=== PATIENT | female | born 1955 | race Two or more races ===

== ENCOUNTER 2024-07-22 13:36 | Outpatient (REF) | payer MEDICAID, SELFPAY ==
--- OUTSIDE RECORDS SUMMARY | 2024-07-22 13:43 | XMS_ITS | Encounter Summary ---
Author Organization [employer] Address [address] [facility] 7t [place] [address] Care Team Providers Care Precast Worker Name Role Phone Unavailable Primary Care Provider Unavailabl e Encounter Details Date Type Department Care Team ([facility] st Contact Info) Description 07/22/2024 Telephone [facility] [address] [place] [address] Zachariah Sharma MD [address] [place] [address] Social History Tobacco Use Types Packs/Day Years Used Date Smoking Tobacco: Never Assessed Comments Unknown Sex and Gender Information Value Date Recorded Sex Assigned at Female 07/22/2024 10:13 AM EDT Legal Sex Female 9:39 AM EST Gender Identity Female 07/22/2024 10:13 AM EDT Sexual Orientation Don't know 07/22/2024 10 :13 AM EDT documented as of this encounter Miscellaneous Notes * Telephone Encounter - [place] - 07/22/2024 11:16 AM EDT Pt has a new diagnosis for Diabetes, needs new patient appt within [address] Sharma. documented in this encounter Plan of Treatment Not on file documented as of this encounter Visit Diagnoses Not on filedocumented in this encounter
--- OUTSIDE RECORDS SUMMARY | 2024-07-22 13:43 | XMS_ITS | Encounter Summary ---
Author Organization [employer] Address [address] [facility] 7 [place] [address] Care Team Providers Care Tile Machine Operator Name Role Phone Unavailable Primary Care Provider Unavailabl e Reason for Visit * Reason Onset Date Comments new patient appointment 07/22/2024 Encounter Details Date Type Department Care Team ([facility] st Contact Info) Description 07/22/2024 Telephone [facility] [address] [place] [address] Zachariah Sharma MD [address] [place] [address] new patient appointment Social History Tobacco Use Types Packs/Day Years Used Date Smoking Tobacco: Never Assessed Comments Unknown Sex and Gender Information Value Date Recorded Sex Assigned at Female 07/22/2024 10:13 AM EDT Legal Sex Female 9:39 AM EST Gender Identity Female 07/22/2024 10:13 AM EDT Sexual Orientation Don't know 07/22/2024 10 :13 AM EDT documented as of this encounter Miscellaneous Notes * Telephone Encounter - Marilee Bray - 07/22/2024 11:14 AM EDT Patient added to [facility] New patient wait list as of 07/22/24. * Telephone Encounter - Miles Gregory - 07/22/2024 10:23 AM EDT Pt needs a n/p appointment was seen in walk in on 07/22/24. Pt is aware of wait list and has left adetailed message on n/p line per daughter statement. documented in this encounter Plan of Treatment Not on file documented as of this encounter Visit Diagnoses Not on filedocumented in this encounter
--- OUTSIDE RECORDS SUMMARY | 2024-07-22 13:43 | XMS_ITS | Encounter Summary ---
Author Organization [employer] Address [address] [facility] 7t [place] [address] Care Team Providers Care Statue Carver Name Role Phone Unavailable Primary Care Provider Unavailabl e Reason for Visit * Reason Comments Hyperglycemia Encounter Details Date Type Department Care Team ([facility] st Contact Info) Description 07/22/2024 10:20 AM EDT Office Visit [facility] [address] [place] [address] Zachariah Sharma MD [address] [place] [address] Elevated BP without diagnosis of hypertension (Primary Dx); New onset type 2 diabetes mellitus ([facility]) Social History Tobacco Use Types Packs/Day Years Used Date Smoking Tobacco: Never Assessed Comments Unknown Sex and Gender Information Value Date Recorded Sex Assigned at Female 07/22/2024 10:13 AM EDT Legal Sex Female 9:39 AM EST Gender Identity Female 07/22/2024 10:13 AM EDT Sexual Orientation Don't know 07/22/2024 10 :13 AM EDT documented as of this encounter Last Filed Vital Signs Vital Sign Reading Time Taken Comments Blood Pressure 155/82 07/22/2024 10:46 AM EDT Pulse 73 07/22/2024 10:46 AM EDT Temperature 36.7 ??C (98.1 ??F) 07/22/2024 10:46 AM E DT Respiratory Rate 18 07/22/2024 10:46 AM EDT Oxygen Saturation 100% 07/22/2024 10:46 AM EDT Inhaled Oxygen Concentration - - Weight 86.2 kg (190 lb) 07/22/2024 10:46 AM EDT Height - - Body Mass Index - - documented in this encounter Progress Notes * Zachariah Edith, MD - 07/22/2024 10:20 AM EDT Subjective History was provided by the patient. Here with her daughter (Ronna) Betzaida Wolfe is a 69 y.o. female NEW PATIENT who presents for evaluation of elevated BS.Originally from [facility], but moved here 3 months ago. Has not had much medical care recently. Overall healthy. Not on any routine medications other than multivitamins. History of neck surgery for a mass (not thyroid; non-cancerous) ~8 years ago. . Has 11 grandchildren and 1 great grandchild. Recalls last Pap was 4-5 years ago (was told normal). Last mammogram was also 4-5 years ago (wastold normal). Has been checking BS using a family member's glucometer. No symptoms other than polydipsia. Stable weight. Had a fasting BS of 140 yesterday. POC BS 110 & Hgb A1c 6.5 today. Objective Vitals: 07/22/24 1046 BP: (!) 155/82 BP Location: Right arm Patient Position: Sitting BP Cuff Size: Adult Pulse: 73 Resp: 18 Temp: 98.1 ??F (36.7 ??C) TempSrc: Temporal SpO2: 100% Weight: 190 lb (86.2 kg) Physical Exam Vitals reviewed. Constitutional: Appearance: Normal appearance. She is normal weight. HENT: Head: Normocephalic and atraumatic. Right Ear: Tympanic membrane, ear canal and external ear normal. Left Ear: Tympanic membrane, ear canal and external ear normal. Nose: Nose normal. Mouth/Throat: Mouth: Mucous membranes are moist. Pharynx: Oropharynx is clear. Eyes: Extraocular Movements: Extraocular movements intact. Conjunctiva/sclera: Conjunctivae normal. Pupils: Pupils are equal, round, and reactive to light. Cardiovascular: Rate and Rhythm: Normal rate and regular rhythm. Heart sounds: Normal heart sounds. Pulmonary: Effort: Pulmonary effort is normal. Breath sounds: Normal breath sounds. Musculoskeletal: General: Normal range of motion. Cervical back: Normal range of motion and neck supple. Lymphadenopathy: Cervical: No cervical adenopathy. Skin: General: Skin is warm and dry. Neurological: General: No focal deficit present. Mental Status: She is alert and oriented to person, place, and time. Psychiatric: Mood and Affect: Mood normal. Behavior: Behavior normal. Betzaida was seen today for hyperglycemia. Diagnoses and all orders for this visit: Elevated BP without diagnosis of hypertension (Primary) New onset type 2 diabetes mellitus (CMS/HCC) - POCT A1C - POCT glucose manually resulted - metFORMIN, OSM, (Fortamet) 500 MG 24 hr tablet; Take 1 tablet (500 mg) by mouth Once per day. Do not crush, chew, or split. - Alcohol Swabs (Alcohol Pads) 70 % pads; Use as directed on skin; check 2x/day (new-onset Type 2 DM) - Blood Glucose Monitoring Suppl (FreeStyle [place] Lite) w/Device kit; Use as directed on skin; check 2x/day (new-onset Type 2 DM) - FreeStyle lancets; 1 each by Other route 2 times daily. Use as directed on skin; check 2x/day (new-onset Type 2 DM) - glucose blood (FREESTYLE LITE) test strip; Use as directed on skin; check 2x/day (new-onset Type 2 DM) - Comprehensive Metabolic Panel; Future - CBC auto differential; Future - Lipid Panel, Standard; Future - Albumin, Random Urine W/Creatinine; Future - TSH W/Reflex to FT4; Future New patient presents to [facility] due to elevated BS New diagnosis of DM based on fasting BS and Hgb A1c criteria Sister with diabetes Will check CMP, CBC, FLP, TSH, and MA/Cr ratio Discussed treatment options Will start Metformin ER 500mg daily Potential adverse effects of the medication reviewed Glucometer and supplies prescribed Will schedule a new PCP appointment YAEL Recommend monitoring BP Indications for UC/ER use reviewed Advised to contact the clinic if persistent or worsening concerns Aware of [facility] availability documented in this encounter Plan of Treatment Scheduled Orders Name Type Priority Associated Diagnoses Orde r Schedule Comprehensive Metabolic Panel Lab Routine New onset type 2 diabetes mellitus (CMS/HCC) Expected: 07/22/2024 (Approximate), Expires: 07/22/2025 CBC auto differential Lab Routine New onset type 2 diabetes mellitus (CMS/HCC) Expected: 07/22/2024 (Approximate), Expires: 07/22/2025 Lipid Panel, Standard Lab Routine New onset type 2 diabetes mellitus ([facility]/HCC) Expected: 07/22/2024 (Approximate), Expires: 07/22/2025 Albumin, Random Urine W/Creatinine Lab Routine New onset type 2 diabetes mellitus ([facility]/HCC) Expected: 07/22/2024 (Approximate), Expires: 07/22/2025 TSH W/Reflex to FT4 Lab Routine New onset type 2 diabetes mellitus ([facility]/HCC) Expected: 07/22/2024 (Approximate), Expires: 07/22/2025 documented as of this encounter Procedures Procedure Name Priority Date/Time Associated Diagnosis Comments POCT GLYCATED HEMOGLOBIN, TOTAL Routine 07/22/2024 10:49 AM EDT New onset type 2 diabetes mellitus ([facility]/HCC) POCT GLUCOSE Routine 07/22/2024 10:49 AM EDT New onset type 2 diabetes mellitus ([facility]) documented in this encounter Results * POCT glucose manually resulted (07/22/2024 10:49 AM EDT) Glucose Blood, POC 110 60 - 200 mg/dL Blood Capillary blood specimen / Unknown 07/22/2024 10:49 AM EDT us Zachariah Sharma MD POINT OF CARE TEST ENTER/EDIT OR DERABLES Final Result * (ABNORMAL) POCT A1C (07/22/2024 10:49 AM EDT) Hemoglobin A1C 6.5(A) 4.0 - 6.0 % Blood 07/22/2024 10:4 9 AM EDT us Zachariah Sharma MD POINT OF CARE TEST ENTER/EDIT OR DERABLES Final Result documented in this encounter Visit Diagnoses Diagnosis Elevated BP without diagnosis of hypertension- Primary New onset type 2 diabetes mellitus ([facility]/HCC) documented in this encounter
--- OUTSIDE RECORDS SUMMARY | 2024-07-22 13:43 | XMS_ITS | Clinical Summary ---
Author Organization [employer] Address [address] [place] [address] 7t [place] [address] Care Team Providers Care Pharmacy Delivery Driver Name Role Phone Unavailable Primary Care Provider Unavailabl e Allergies No known active allergies Medications metFORMIN, OSM, (Fortamet) 500 MG 24 hr tabletIndicatio ns:Type 2 Diabetes Mellitus Take 1 tablet (500 mg) by mouth Once per day. Do not crush, chew, or split. 90 tablet 07/22/2024 10/21/19 25 Active Alcohol Swabs (Alcohol Pads) 70 % padsIndications :New onset type 2 diabetes mellitus (CMS/HCC) Use as directed on skin; check 2x/day (new-onset Type 2 DM) 100 each 11 07/22/2024 Active Blood Glucose Monitoring Suppl (FreeStyle [place] Lite) w/Device kitIndications: New onset type 2 diabetes mellitus (CMS/HCC) Use as directed on skin; check 2x/day (new-onset Type 2 DM) 1 kit 07/22/2024 Active FreeStyle lancetsIndicati ons:New onset type 2 diabetes mellitus (CMS/HCC) 1 each by Other route 2 times daily. Use as directed on skin; check 2x/day (new-onset Type 2 DM) 60 each 11 07/22/2024 07/23/19 26 Active glucose blood (FREESTYLE LITE) test stripIndication s:New onset type 2 diabetes mellitus (CMS/HCC) Use as directed on skin; check 2x/day (new-onset Type 2 DM) 60 each 07/22/2024 Active Encounters Date Type Department Care Team Description 07/22/2024 10:20 AM EDT Office Visit [facility] [address] [place] [address] Zachariah Sharma MD Elevated BP without diagnosis of hypertension (Primary Dx); New onset type 2 diabetes mellitus (CMS/HCC) 07/22/2024 Telephone [facility] [address] [place] [address] Zachariah Sharma MD 07/22/2024 Telephone [facility] [address] [place] [address] Zachariah Sharma MD new patient appointment 07/22/2024 Travel from Last 3 Months Social History Tobacco Use Types Packs/Day Years Used Date Smoking Tobacco: Never Assessed Comments Unknown Sex and Gender Information Value Date Recorded Sex Assigned at Female 07/22/2024 10:13 AM EDT Legal Sex Female 9:39 AM EST Gender Identity Female 07/22/2024 10:13 AM EDT Sexual Orientation Don't know 07/22/2024 10 :13 AM EDT Last Filed Vital Signs Vital Sign Reading [...] - - Body Mass Index - - Plan of Treatment Health Maintenance Due Date Last Done Comments CT Colonography 1956 Colonoscopy 1956 Colorectal Cancer Screening 1956 Depression Screening 1956 FIT DNA/Cologuard 1956 FIT 1956 FOBT 1956 Lipid Panel 1956 SDOH Screening 1956 Sigmoidoscopy 1956 Diabetes: Foot Exam 01/31/1966 Eye Exam 01/31/1966 Alcohol/Substance Use Screening 1968 Tobacco Screening 1968 Hepatitis C Screening 01/31/1974 DTaP/Tdap/Td Vaccines (1 - Tdap) 01/31/1975 Diabetes: Urine Protein Screening 01/31/1975 Pneumococcal Vaccine: 50+ Ye ars (1 of 2 - PCV) 01/31/1975 Mammogram 1996 Zoster Vaccines (1 of 2) 01/31/2006 COVID-19 Vaccine ( - 2023-2 5 season) 2023 Influenza Vaccine (#1) 2023 Diabetes: Hemoglobin A1C 01/22/2025 07/22/2024 RSV Patients and Pa tients Aged 60 years or older (1 - 1-dose 75+ series) 01/31/2031 HIB Vaccines Aged Out No longer eligi ble based on patient's age to complete this topic HPV Vaccines Aged Out No longer eligi ble based on patient's age to complete this topic Hepatitis A Vaccines Aged Out No long er eligible based on patient's age to complete this topic Hepatitis B Vaccines Aged Out No long er eligible based on patient's age to complete this topic IPV Vaccines Aged Out No longer eligi ble based on patient's age to complete this topic Meningococcal Vaccine Aged Out No wood pedro eligible based on patient's age to complete this topic RSV under 20 months Aged Out No longe r eligible based on patient's age to complete this topic Rotavirus Vaccines Aged Out No longer eligible based on patient's age to complete this topic Procedures Procedure Name Priority Date/Time Associated Diagnosis Comments POCT GLUCOSE Routine 07/22/2024 10:49 AM EDT New onset type 2 diabetes mellitus (CMS/HCC) POCT GLYCATED HEMOGLOBIN, TOTAL Routine 07/22/2024 10:49 AM EDT New onset type 2 diabetes mellitus (CMS/HCC) from Last 3 Months Results * (ABNORMAL) POCT A1C (07/22/2024 10:49 AM EDT) Hemoglobin A1C 6.5(A) 4.0 - 6.0 % Blood 07/22/2024 10:4 9 AM EDT Zachariah Sharma MD POINT OF CARE TEST ENTER/EDIT OR DERABLES Final Result * POCT glucose manually resulted (07/22/2024 10:49 AM EDT) Glucose Blood, POC 110 60 - 200 mg/dL Blood Capillary blood specimen / Unknown 07/22/2024 10:49 AM EDT Zachariah Sharma MD POINT OF CARE TEST ENTER/EDIT OR DERABLES Final Result from Last 3 Mon[address] [facility]
--- OUTSIDE RECORDS SUMMARY | 2024-07-22 13:43 | XMS_ITS | Encounter Summary ---
Author Organization [employer] Address [address] [place] [address] [address] [place] [address] Care Team Providers Care Compensation Vice President Name Role Phone Unavailable Primary Care Provider Unavailabl e Encounter Details Date Type Department Care Team (Latest Contact Info) Description 07/22/2024 Travel Social History Tobacco Use Types Packs/Day Years Used Date Smoking Tobacco: Never Assessed Comments Unknown Sex and Gender Information Value Date Recorded Sex Assigned at Female 07/22/2024 10:13 AM EDT Legal Sex Female 9:39 AM EST Gender Identity Female 07/22/2024 10:13 AM EDT Sexual Orientation Don't know 07/22/2024 10 :13 AM EDT documented as of this encounter Plan of Treatment Not on file documented as of this encounter Visit Diagnoses Not on filedocumented in this encounter
[2024-07-22 16:05] LABS: MANUAL DIFF FLAG NO
[2024-07-22 16:28] LABS: Basophils Percent Auto 0.4 % (0-2); Eosinophils Absolute Auto 0.2 X10*3/uL (0.0-0.4); Eosinophils Percent Auto 2.1 % (0-4); Hematocrit 39.6 % (37.0-47.0); Hemoglobin 12.8 g/dl (12.0-16.0); Imm Gran Abs Auto 0.03 X10*3/uL (0.00-0.03); Imm Gran Pct Auto 0.3 % (0.0-0.4); Lymphocytes Absolute Auto 2.5 X10*3/uL (1.2-4.9); Lymphocytes Percent Auto 27.4 % (20-40); Mean Corpuscular HGB Conc 32.3 g/dl (31.0-35.0); Mean Corpuscular Hemoglobin 28.6 pg (27.0-33.0); Mean Corpuscular Volume 88.6 fL (80.0-98.0); Mean Platelet Volume 11.4 fL (9.4-12.3); Monocytes Absolute Auto 0.5 X10*3/uL (0.1-1.2); Monocytes Percent Auto 5.4 % (2-11); Neutrophils Absolute Auto 5.7 x10*3/uL (2.0-8.3); Neutrophils Percent Auto 64.4 % (45-73); Platelet Count 307 X10*3/uL (160-400); Red Blood Count 4.47 X10*6/uL (4.20-5.50); Red Cell Distribution Width 14.6 % (11.0-16.0); White Blood Count 8.9 X10*3/uL (4.8-10.8)
[2024-07-22 17:34] LABS: Creatinine Urine 65.19 mg/dL; Microalbum/Creatinine Ratio Ur 21.4 ug/mg cr (<30)
[2024-07-22 17:58] LABS: Alanine Aminotransferase 14 U/L (0-31); Alkaline Phosphatase 107 U/L (39-117); Anion Gap 14 (12-20); Aspartate Amino Transferase 26 U/L (5-31); Bilirubin Total 0.4 mg/dL (0.0-1.0); Blood Urea Nitrogen 9 mg/dL (9-16); Calcium 9.8 mg/dL (8.4-10.2); Carbon Dioxide 28 mmol/L (22-29); Chloride 102 mmol/L (96-108); Cholesterol 175 mg/dL (<200); Estimated Glomerular Filt Rate > 60; Glucose Random 107 mg/dL (60-115); HDL Cholesterol 47 mg/dL (>40); LDL Cholesterol Calculated 103 mg/dL (<100); Potassium 3.6 mmol/L (3.3-5.1); Sodium 140 mmol/L (135-145); TSH reflex Free T4 2.62 uIU/mL (0.32-4.0); Total Protein 7.5 g/dL (6.5-8.0); Triglycerides 126 mg/dL (<150)
== END 2024-07-22 13:37 | disposition home or self-care (01) ==
LOC: HO.HHCL 13:36
PROVIDERS: Visit Provider Family Medicine
DX: E11.9 Type 2 diabetes mellitus without complications (principal)
CPT/HCPCS: 36415; 80053; 80061; 82043; 82570; 84443; 85025

== ENCOUNTER 2024-10-05 14:57 | Outpatient (REF) | payer MEDICAID, SELFPAY ==
--- OUTSIDE RECORDS SUMMARY | 2024-10-05 15:33 | XMS_ITS | Clinical Summary ---
Author Organization [employer] Address [address] [place] [address] [address] [place] [address] Care Team Providers Care Maintenance Mechanic Supervisor Name Role Phone Magali Valencia PASTE MAKER Primary Care Provider Allergies No known active allergies Medications Alcohol Swabs (Alcohol Pads) 70 % padsIndication s:New onset type 2 diabetes mellitus (CMS/HCC) Use as directed on skin; check 2x/day (new-onset Type 2 DM) 100 each 07/23/19 25 Active Blood Glucose Monitoring Suppl (FreeStyle Ettrick Lite) w/Device kitIndications :New onset type 2 diabetes mellitus (CMS/HCC) Use as directed on skin; check 2x/day (new-onset Type 2 DM) 1 kit 07/23/19 25 Active FreeStyle lancetsIndicat ions:New onset type 2 diabetes mellitus (CMS/HCC) 1 each by Other route 2 times daily. Use as directed on skin; check 2x/day (new-onset Type 2 DM) 60 each 07/23/19 25 05 026 Active glucose blood (FREESTYLE LITE) test stripIndicatio ns:New onset type 2 diabetes mellitus (CMS/HCC) Use as directed on skin; check 2x/day (new-onset Type 2 DM) 60 each 07/23/19 25 Active Omeprazole 20 MG tablet delayed-releas e Take 1 tablet (20 mg) by mouth Once per day. 90 tablet 10/06/19 25 Active metFORMIN, OSM, (Fortamet) 500 MG 24 hr tabletIndicati ons:Type 2 Diabetes Mellitus Take 1 tablet (500 mg) by mouth Once per day. Do not crush, chew, or split. 90 tablet 10/06/19 25 025 Active Blood Pressure kit 1 Units 2 times daily. 1 kit 10/06/19 Active atorvastatin (Lipitor) 10 MG tablet Take 1 tablet (10 mg) by mouth Once per day. 30 tablet 11 10/06/19 25 026 Active metFORMIN, OSM, (Fortamet) 500 MG 24 hr tabletIndicati ons:Type 2 Diabetes Mellitus Take 1 tablet (500 mg) by mouth Once per day. Do not crush, chew, or split. 90 tablet 07/23/19 025 Discontinued(Re order (will not trigger notification to Pharmacy)) Active Problems Problem Noted Date Diagnosed Date Gastroesophageal reflux disease without esophagi tis 10/05/2024 Encounters Date Type Department Care Team Description 10/05/2024 2:00 PM EDT Office Visit [address] [address] Magali Valencia FNP Encounter for immunization (Primary Dx); Dietary counseling; Exercise counseling; Gastroesophageal reflux disease without esophagitis; New onset type 2 diabetes mellitus (CMS/HCC) 10/05/2024 Travel 10/04/[address] [address] Magali Valencia FNP Chart Prep 09/27/2024 Patient Outreach [facility] [address] [place] [address] Magali Valencia FNP Pre-visit Planning (SDOH negative. Tobacco screening negative. ) 09/08/[address] [address] Magali Valencia FNP CH[facility] - New Patient Assistance 07/22/2024 10:20 AM EDT Office Visit [facility] [address] [place] [phone] Zachariah Sharma MD Elevated BP without diagnosis of hypertension (Primary Dx); New onset type 2 diabetes mellitus (CMS/HCC) 07/22/2024 Telephone [facility] [address] [place] [phone] Zachariah Sharma MD 07/22/2024 Telephone [facility] [address] [place] [address] Zachariah Sharma MD new patient appointment 07/22/2024 Travel from Last 3 Months Immunizations Immunization Administration Dates Next Due Pneumococcal Conjugate PCV 20 10/05/2024 Tdap 10/05/2024 Family History Medical History Relation Name Comments Diabetes Mother's Sister Relation Name Status Comments Mother's Sister Social History Tobacco Use Types Packs/Day Years Used Date Smoking Tobacco: Never Passive Smoke Exposure: Never Smokeless Tobacco: Never Tobacco Cessation:Counseling Given: Not Answered Alcohol Use Standard Drinks/Week Comments Never 0 (1 standard drink = 0.6 oz pur e alcohol) Depression Answer Date Recorded Patient Health Questionnaire-9 Score 0 10/05/2024 Patient Health Questionnaire-9 Score 0 10/05/2024 Last PHQ-9: Questionnaire Data Not on file 0 10/05/2024 Housing Stability Answer Date Recorded What is your housing situation today? I have jamie trimble 09/27/[address] you li ve. Do you have problems with any of the following? None of the above 09/27/2024 Food Insecurity Answer Date Recorded Within the past 12 months, y ou worried that your food would run out before you got money to buy more: Never True 09/27/2024 Within the past 12 months,th e food you bought just didn't last and you didn't have enough money to get more: Never True Transportation Answer Date Recorded In the past 12 months, has l ack of transportation kept you from medical appts, meetings, work or from getting things needed for daily living? No 09/27/2024 Utilities Answer Date Recorded In the past 12 months, has t he electric, gas, oil or water company threatened to shut off services in your home? No 09/27/2024 Depression Answer Date Recorded Patient Health Questionnaire-2 Score 0 10/05/2024 Internet Access Answer Date Recorded Internet Access Q1 Yes 09/27/2024 Internet Access Q2 Not on file 09/27/2024 Comments Unknown Sex and Gender Information Value Date Recorded Sex Assigned at Female 07/22/2024 10:13 AM EDT Legal Sex Female 9:39 AM EST Gender Identity Female 07/22/2024 10:13 AM EDT Sexual Orientation Don't know 07/22/2024 10 :13 AM EDT Last Filed Vital Signs Vital Sign Reading Time Taken Comments Blood Pressure 148/82 10/05/2024 2:07 PM EDT Pulse 86 10/05/2024 2:07 PM EDT Temperature 36.6 C (97.9 F) 10/05/2024 2:07 PM EDT Respiratory Rate 16 10/05/2024 2:07 PM EDT Oxygen Saturation 99% 10/05/2024 2:07 PM EDT Inhaled Oxygen Concentration - - Weight 84.6 kg (186 lb 8 oz) 10/05/2024 2:07 PM EDT Height 155.9 cm (5' 1.37 ) 10/05/2024 2:07 PM ED T Body Mass Index 34.82 10/05/2024 2:07 PM EDT Plan of Treatment Health Maintenance Due Date Last Done Comments CT Colonography 1956 Colonoscopy 1956 Colorectal Cancer Screening 1956 Depression Screening 1956 FIT DNA/Cologuard 1956 FIT 1956 FOBT 1956 Sigmoidoscopy 1956 Diabetes: Foot Exam 01/31/1966 Eye Exam 01/31/1966 Hepatitis C Screening 01/31/1974 Mammogram 1996 Zoster Vaccines (1 of 2) 01/31/2006 COVID-19 Vaccine (2023-2 5 season) 2023 Influenza Vaccine (#1) 2024 Diabetes: Hemoglobin A1C 01/22/2025 07/22/2024 Diabetes: Urine Protein Screening 07/22/2025 025 Lipid Panel 07/22/2025 07/22/2024 SDOH Screening 09/27/2025 09/27/2024 Alcohol/Substance Use Screening 10/05/2025 5 Tobacco Screening 10/05/2025 10/05/2024 RSV Patients and Pa tients Aged 60 years or older (1 - 1-dose 75+ series) 01/31/2031 DTaP/Tdap/Td Vaccines (2 - T d or Tdap) 10/05/2034 10/05/2024 Pneumococcal Vaccine: 50+ Years Completed 5 HIB Vaccines Aged Out No longer eligi [...] patient's age to complete this topic Meningococcal B Vaccine Aged Out No l onger eligible based on patient's age to complete [...] Procedure Name Priority Date/Time Associated Diagnosis Comments TSH W/REFLEX TO FT4 Routine 07/22/2024 1 :40 PM EDT New onset type 2 diabetes mellitus (CMS/HCC) ALBUMIN, RANDOM URINE W/CREATININE Routine 07/22/2024 1:40 PM EDT New onset type 2 diabetes mellitus (CMS/HCC) LIPID PANEL, STANDARD Routine 07/22/2024 1:40 PM EDT New onset type 2 diabetes mellitus (CMS/HCC) CBC WITH AUTO DIFFERENTIAL Routine 07/22/2024 1:40 PM EDT New onset type 2 diabetes mellitus (CMS/HCC) COMPREHENSIVE METABOLIC PANEL Routine 07/22/2024 1:40 PM EDT New onset type 2 diabetes mellitus (CMS/HCC) POCT GLUCOSE Routine 07/22/2024 10:49 AM EDT New onset type 2 diabetes mellitus (CMS/HCC) POCT GLYCATED HEMOGLOBIN, TOTAL Routine 07/22/2024 10:49 AM EDT New onset type 2 diabetes mellitus (CMS/HCC) from Last 3 Months Results * TSH W/Reflex to FT4 (07/22/2024 1:40 PM EDT) TSH reflex Free T4 2.62 0.32 - 4.0 uIU/mL [facility] Blood Venous blood specimen / Unknown 07/22/2024 1:40 PM EDT 07/22/2024 4:00 PM EDT Zachariah Sharma MD LAB BLOOD ORDERABLES Final Resul t Performing Organization Address [facility] de Phone Number [facility] [address] [place] [phone] * Albumin, Random Urine W/Creatinine (07/22/2024 1:40 PM EDT) Pathologist [facility] Creatinine, Urine 65.19 mg/dL [facility] Microalbumin Urine 14.0 mg/L [facility] Microalbum Creatinine Ratio Ur 21.4 <30 ug/mg cr [facility] Comment:Albumin/Creatinine R atio Reference Ranges: Normal: < 30 ug/mg creatinine Microalbuminuria: 30 - 300 ug/mg creatinineClinical Albuminuria: > 300 ug/mg creatinine Urine 07/22/2024 1:40 PM EDT 07/22/2024 4:01 PM EDT Zachariah Sharma MD LAB URINE ORDERABLES Final Resul t Performing Organization Address [facility] Co de Phone Number [facility] [address] [place] [phone] * CBC auto differential (07/22/2024 1:40 PM EDT) White Blood Count 8.9 4.8 - 10.8 X10*3/uL [facility] Red Blood Count 4.47 4.20 - 5.50 X10*6/uL [facility] Hemoglobin 12.8 12.0 - 16.0 g/dl [facility] Hematocrit 39.6 37.0 - 47.0 % [facility] Mean Corpuscular Volume 88.6 80.0 - 98.0 fL [facility] Mean Corpuscular Hemoglobin 28.6 27.0 - 33.0 pg [facility] Mean Corpuscular HGB Conc 32.3 31.0 - 35.0 g/dl [facility] Red Cell Distribution Width 14.6 11.0 - 16.0 % [facility] Platelet Count 307 160 - 400 X10*3/uL [facility] Mean Platelet Volume 11.4 9.4 - 12.3 fL [facility] Neutrophils Percent Auto 64.4 45 - 73 % [facility] Imm Gran Pct Auto 0.3 0.0 - 0.4 % [facility] Lymphocytes Percent Auto 27.4 20 - 40 % [facility] Monocytes Percent Auto 5.4 2 - 11 % [facility] Eosinophils Percent Auto 2.1 0 - 4 % [facility] Basophils Percent Auto 0.4 0 - 2 % [facility] NRBC Pct Auto 0.0 0.0 - 0.2 /100WBC [facility] Neutrophils Absolute Auto 5.7 2.0 - 8.3 x10*3/uL [facility] Imm Gran Abs Auto 0.03 0.00 - 0.03 X10*3/uL [facility] Lymphocytes Absolute Auto 2.5 1.2 - 4.9 X10*3/uL [facility] Monocytes Absolute Auto 0.5 0.1 - 1.2 X10*3/uL [facility] Eosinophils Absolute Auto 0.2 0.0 - 0.4 X10*3/uL [facility] Basophils Absolute Auto 0.0 0.0 - 0.2 X10*3/uL [facility] NRBC Abs Auto 0.000 0.0 - 0.012 X10*3/uL [facility] Blood Venous blood specimen / Unknown 07/22/2024 1:40 PM EDT 07/22/2024 4:00 PM EDT us Zachariah Sharma MD LAB BLOOD ORDERABLES Final Resul t [facility] [address] [place] [phone] * (ABNORMAL) Lipid Panel, Standard (07/22/2024 1:40 PM EDT) Triglycerides 126 <150 mg/dL [facility] Comment:Desirable Triglyceri de: less than 150 mg/dLBorderline High Triglyceride 150-199 mg/dLHigh Triglyceride: 200-499 mg/dLVery High Triglyceride: greater than or equal to 5OO mg/dL Cholesterol 175 <200 mg/dL [facility] Comment:Desirable Cholestero l: less than 200 mg/dLBorderline High Cholesterol: 200-239 mg/dLHigh Cholesterol: greater than 239 mg/dL LDL Cholesterol Calculated 103(H) <100 mg/dL [facility] Comment:Desirable LDL: less than 100 mg/dLNear Optimal/Above Optimal LDL: 110- 129 mg/dLBorderline High LDL: 130-159 mg/dLHigh LDL: 160-189 mg/dLVery High LDL: greater than or equal to 190 mg/dL HDL Cholesterol 47 >40 mg/dL [facility] Comment:Desirable HDL: great er than 40 mg/dL Note: This HDL assay may give artificially low results in patients with liver disease. Blood Venous blood specimen / Unknown 07/22/2024 1:40 PM EDT 07/22/2024 4:00 PM EDT us Zachariah Sharma MD LAB BLOOD ORDERABLES Final Resul t [facility] [address] [place] [phone] * Comprehensive Metabolic Panel (07/22/2024 1:40 PM EDT) Sodium 140 135 - 145 mmol/L [facility] Potassium 3.6 3.3 - 5.1 mmol/L [facility] Chloride 102 96 - 108 mmol/L [facility] Carbon Dioxide 28 22 - 29 mmol/L [facility] Anion Gap 14 12 - 20 [facility] Urea Nitrogen (BUN) 9 9 - 16 mg/dL [facility] Creatinine, Serum 0.67 0.5 - 1.4 mg/dL [facility] Estimated Glomerular Filt Rate >60 [facility] Comment:Chronic Kidney Disea se: Estimated GFR < 60 mL/min/1.01m6Tbabtt Kidney Disease: Estimated GFR < 15 mL/min/1.73m2 Glucose 107 60 - 115 mg/dL [facility] Calcium 9.8 8.4 - 10.2 mg/dL [facility] Bilirubin, Total 0.4 0.0 - 1.0 mg/dL [facility] Aspartate Amino Transferase 26 5 - 31 U/L [facility] Alanine Aminotransferase 14 0 - 31 U/L [facility] Total Protein 7.5 6.5 - 8.0 g/dL [facility] Albumin Level 4.0 3.5 - 5.0 g/dL [facility] Alkaline Phosphatase 107 39 - 117 U/L [facility] Blood Venous blood specimen / Unknown 07/22/2024 1:40 PM EDT 07/22/2024 4:00 PM EDT us Zachariah Sharma MD LAB BLOOD ORDERABLES Final Resul t [facility] [address] [place] [phone] * (ABNORMAL) POCT A1C (07/22/2024 10:49 AM [...] Final Result from Last 3 Months Insurance [facility] [employer] Care Teams Maintenance Mechanic Supervisor Relationship Specialty Start Date End Date Magali Valencia FNP [address] [place] [phone] PCP - General Family Medicine 10/05/24
[2024-10-05 22:23] LABS: CT PCR Urine NOT DETECTED (Not Detect.); NG PCR Urine NOT DETECTED (Not Detect.)
[2024-10-06 08:08] LABS: HBS Num1 25.59 mIU/mL (0-7.99); HBsAGNum1 0.34 S/CO (0.00-0.99); HIV Num 1 0.06 S/CO (0.00-0.99); Hepatitis B Surface Antigen Negative (Negative); ~HepC Num1 0.22 S/CO (0.00-0.79); ~Hepatitis B Surface Antibody REACTIVE (Nonreactive); ~Hepatitis C Antibody Nonreactive (Nonreactive)
== END 2024-10-05 14:58 | disposition home or self-care (01) ==
LOC: HO.HHCL 14:57
PROVIDERS: PCP Nurse Practitioner Family; Visit Provider Nurse Practitioner Family
DX: Z11.4 Encounter for screening for human immunodeficiency virus [HIV] (principal); Z11.59 Encounter for screening for other viral diseases; Z23 Encounter for immunization
CPT/HCPCS: 36415; 86706; 86803; 87340; 87389; 87491; 87591

== ENCOUNTER 2024-11-11 14:11 | Outpatient (REF) | payer MEDICAID, OTHER, SELFPAY ==
--- NOTE | ~2024-11-11 | MM_ITS ---
EXAMINATION: MM SCREENING DIGITAL BREAST TOMOSYNTHESIS, BILATERAL CLINICAL INFORMATION: Screening. Asymptomatic. COMPARISON: Mammography: Baseline. TECHNIQUE: Digital breast mammography with tomosynthesis is performed in both the craniocaudal and mediolateral oblique views along with computer-aided detection (CAD). FINDINGS: There are scattered areas of fibroglandular density (ACR BI-RADS breast composition Category b). Left: Circumscribed oval mass lower central breast anterior depth. No suspicious calcifications or other abnormal findings. Right: There are no significant masses, abnormal calcifications, or other abnormalities. MM/MM tomosynthesis screening BI IMPRESSION: Additional imaging is recommended ASSESSMENT: BI-RADS BI-RADS 0 - Incomplete: Needs additional Imaging. RECOMMENDATION: 1. Additional views of the left breast starting with ultrasound. 2. Radiology department staff will contact the patient for additional imaging. Additional Imaging required This examination should not preclude the clinical evaluation of a suspicious palpable abnormality. This patient's information was entered into a reminder system with a target due date for their next mammogram. Electronically signed by: Lianne Flores DO 11/15/2024 10:46 AM EDT
--- OUTSIDE RECORDS SUMMARY | 2024-11-11 14:14 | XMS_ITS | Clinical Summary ---
Author Organization [employer] Address [address] [place] [address] [address] [place] [address] Care Team Providers Care Cotton Bag Sewer Name Role Phone Magali Valencia SUPERVISOR CARTOGRAPHY Primary Care Provider [phone] Allergies No known active allergies Medications Alcohol Swabs (Alcohol Pads) 70 % padsIndications :New onset type 2 diabetes mellitus (CMS/HCC) Use as directed on skin; check 2x/day (new-onset Type 2 DM) 100 each 07/22/2024 Active Blood Glucose Monitoring Suppl (FreeStyle [place] Lite) w/Device kitIndications: New onset type 2 diabetes mellitus (CMS/HCC) Use as directed on skin; check 2x/day (new-onset Type 2 DM) 1 kit 07/22/2024 Active FreeStyle lancetsIndicati ons:New onset type 2 diabetes mellitus (CMS/HCC) 1 each by Other route 2 times daily. Use as directed on skin; check 2x/day (new-onset Type 2 DM) 60 each 07/22/2024 07/23/19 26 Active glucose blood (FREESTYLE LITE) test stripIndication s:New onset type 2 diabetes mellitus (CMS/HCC) Use as directed on skin; check 2x/day (new-onset Type 2 DM) 60 each 07/22/2024 Active Omeprazole 20 MG tablet delayed-release Take 1 tablet (20 mg) by mouth Once per day. 90 tablet 10/05/2024 Active metFORMIN, OSM, (Fortamet) 500 MG 24 hr tabletIndicatio ns:Type 2 Diabetes Mellitus Take 1 tablet (500 mg) by mouth Once per day. Do not crush, chew, or split. 90 tablet 10/05/2024 01/04/20 25 Active Blood Pressure kit 1 Units 2 times daily. 1 kit 10/05/2024 Active atorvastatin (Lipitor) 10 MG tablet Take 1 tablet (10 mg) by mouth Once per day. 30 tablet 11 10/05/2024 10/06/19 26 Active Active Problems Problem Noted Date Diagnosed Date Gastroesophageal reflux disease without esophagi tis 10/05/2024 Encounters Date Type Department Care Team Description 10/05/2024 2:00 PM EDT Office Visit [address] [address] Magali Valencia FNP Encounter for adult wellness visit (Primary Dx); Encounter for immunization; Dietary counseling; Exercise counseling; Gastroesophageal reflux disease without esophagitis; New onset type 2 diabetes mellitus ([facility]/HCC); Hyperlipidemia, unspecified hyperlipidemia type; Elevated BP without diagnosis of hypertension 10/05/2024 Orders Only [address] [address] Magali Valencia FNP 10/05/2024 Travel 10/04/[address] [address] Magali Valencia FNP Chart Prep 09/27/2024 Patient Outreach [facility] [address] [place], [place] [id number] Magali Valencia FNP Pre-visit Planning (SDOH negative. Tobacco screening negative. ) 09/08/[address] [address] Magali Valencia FNP CHW - New Patient Assistance from Last 3 Months Immunizations Immunization Administration [...] 1956 Colonoscopy 1956 Colorectal Cancer Screening 1956 FIT DNA/Cologuard 1956 FIT 1956 FOBT 1956 Sigmoidoscopy 1956 Diabetes: Foot Exam 01/31/1966 Eye Exam 01/31/1966 Mammogram 1996 Zoster Vaccines (1 of 2) 01/31/2006 COVID-19 Vaccine (1 - 2023-2 5 season) 2023 Influenza Vaccine (#1) 2024 Diabetes: Hemoglobin A1C 01/22/2025 07/22/2024 Diabetes: Urine Protein Screening 07/22/2025 07/22/2024 Lipid Panel 07/22/2025 07/22/2024 SDOH Screening 09/27/2025 09/27/2024 Alcohol/Substance Use Screening 10/05/2025 10/05/2024 Depression Screening 10/05/2025 10/05/2024, 10/05/2024 Tobacco Screening 10/05/2025 10/05/2024 RSV Patients and Patients Aged 60 years or older (1 - 1-dose 75+ series) 01/31/2031 DTaP/Tdap/Td Vaccines (2 - T d or Tdap) 10/05/2034 10/05/2024 Hepatitis C Screening Completed 10/05/2024 Pneumococcal Vaccine: 50+ Years Completed 10/05/2024 HIB Vaccines Aged Out No longer eligi [...] Procedure Name Priority Date/Time Associated Diagnosis Comments HEPATITIS B SURFACE ANTIBODY, QUALITATIVE Routine 10/05/2024 3:02 PM EDT Encounter for immunization HEPATITIS B SURFACE ANTIGEN, EIA Routine 10/05/2024 3:02 PM EDT Encounter for immunization HEPATITIS C AB W/REFL TO HCV RNA, QN, PCR Routine 10/05/2024 3:02 PM EDT Encounter for immunization HIV 1/2 ANTIGEN/ANTIBODY, FOURTH GENERATION W/RFL Routine 10/05/2024 3:02 PM EDT Encounter for immunization CHLAMYDIA/TRICHOMONA S/NEISSERIA GONORRHOEAE, PCR, URINE Routine 10/05/2024 12:00 AM EDT ALBUMIN, RANDOM URINE W/CREATININE Routine 07/22/2024 1:40 PM EDT New onset type 2 diabetes mellitus (CMS/HCC) LIPID PANEL, STANDARD Routine 07/22/2024 1:40 PM EDT New onset type 2 diabetes mellitus (CMS/HCC) POCT GLYCATED HEMOGLOBIN, TOTAL Routine 07/22/2024 10:49 AM EDT New onset type 2 diabetes mellitus (CMS/HCC) from Last 3 Months or Most Recently Relevant to Health Maintenance Results * Hepatitis C Antibody with Reflex to HCV, RNA, Quantitative, Real-Time PCR (10/05/2024 3:02 PM EDT) Hepatitis C Antibody Nonreactive Nonreactive [facility] Comment:Antibodies to HCV no t detected; does not exclude early acuteHCV infection. Blood Venous blood specimen / Unknown 10/05/2024 3:02 PM EDT 10/05/2024 4:28 PM EDT us Magalimikki Valencia SUPERVISOR CARTOGRAPHY LAB BLOOD ORDERABLES Final Res ult Performing Organization Address City/[facility]/ZIP Co de Phone Number [facility] [address] [place] [phone] * Hepatitis B surface antigen, EIA (10/05/2024 3:02 PM EDT) Pathologist [facility] Hepatitis B Surface Ag Negative Negative [facility] Blood Venous blood specimen / Unknown 10/05/2024 3:02 PM EDT 10/05/2024 4:28 PM EDT us Magali [employer] [facility] LAB BLOOD ORDERABLES Final Res ult Performing Organization Address [facility] de Phone Number [facility] [address] [place] [phone] * HIV-1/2 Antigen and Antibodies, Fourth Generation, with Reflexes (10/05/2024 3:02 PM EDT) [facility] HIV AB/AG Nonreactive Nonreactive [facility] Comment:HIV-1 p24 Ag and/or HIV-1/HIV-2 Ab not detected.A test result that is nonreactive does not exclude thepossibility of exposure to or infection with HIV-1 and/orHIV-2. Nonreactive results in this assay for individualswith prior exposure to HIV-1 and/or HIV-2 may be due toantigen and antibody levels that are below the limit ofdetection of this assay.The [employer] HIV Ag/Ab Combo assay result andsupplemental assay results should be interpreted inconjunction with the patient's clinical presentation,history and other laboratory results. If the results areinconsistent with clinical evidence, additional testing issuggested to confirm the result. Blood Venous blood specimen / Unknown 10/05/2024 3:02 PM EDT 10/05/2024 4:28 PM EDT us [employer] SUPERVISOR CARTOGRAPHY LAB BLOOD ORDERABLES Final Res ult Performing Organization Address [facility] Co de Phone Number [facility] [address] [place] [phone] * Hepatitis B Surface Antibody, Qualitative (10/05/2024 3:02 PM EDT) [facility] ~Hepatitis B Surface Antibody REACTIVE Nonreactive [facility] Comment:REACTIVE: > 11.99 mI U/mL Blood Venous blood specimen / Unknown 10/05/2024 3:02 PM EDT 10/05/2024 4:28 PM EDT us Magalimikki Valencia SUPERVISOR CARTOGRAPHY LAB BLOOD ORDERABLES Final Res ult [facility] [address] [place] [phone] * Chlamydia/Trichomonas/Neisseria gonorrhoeae, PCR, Urine (10/05/2024 12:00 AM EDT) [facility] CT PCR, Urine NOT DETECTED Not Detect. [facility] Comment:A not detected test result does not exclude the possibilityof infection because test results can be affected byimproper specimen collection, concurrent antibiotic therapy,or the number of organisms in the specimen which may bebelow the sensitivity of the test. As with many diagnostictests, results from the Xpert CT/NG assay should beinterpreted in conjunction with other laboratory andclinical data available to the clinician.The Xpert CT/NG assay should not be used for the evaluationof suspected sexual abuse or for other medico-legalindications. Additional testing is recommended in anycircumstance when false positive or false negative resultscould lead to adverse medical, social or psychologicalconsequences. NG PCR, Urine NOT DETECTED Not Detect. [facility] Comment:A not detected test result does not exclude the possibilityof infection because test results can be affected byimproper specimen collection, concurrent antibiotic therapy,or the number of organisms in the specimen which may bebelow the sensitivity of the test. As with many diagnostictests, results from the Xpert CT/NG assay should beinterpreted in conjunction with other laboratory andclinical data available to the clinician.The Xpert CT/NG assay should not be used for the evaluationof suspected sexual abuse or for other medico-legalindications. Additional testing is recommended in anycircumstance when false positive or false negative resultscould lead to adverse medical, social or psychologicalconsequences. 10/05/2024 10/05/2024 us Magalimikki Haydennidhi [facility] LAB URINE ORDERABLES Final Res ult Performing Organization Address [facility] Co de Phone Number [facility] [address] [place] [phone] * Albumin, Random Urine W/Creatinine (07/22/2024 1:40 PM EDT) Creatinine, Urine 65.19 mg/dL [facility] Microalbumin Urine 14.0 mg/L [facility] Microalbum Creatinine Ratio Ur 21.4 <30 ug/mg cr [facility] Comment:Albumin/Creatinine R atio Reference Ranges: Normal: < 30 ug/mg creatinine Microalbuminuria: 30 - 300 ug/mg creatinineClinical Albuminuria: > 300 ug/mg creatinine Urine 07/22/2024 1:40 PM EDT 07/22/2024 4:01 PM EDT us Zachariah Sharma MD LAB URINE ORDERABLES Final Resul t Performing Organization Address [facility] Co de Phone Number [facility] [address] [place] [phone] * (ABNORMAL) Lipid Panel, Standard (07/22/2024 1:40 PM EDT) Triglycerides 126 <150 mg/dL [facility] Comment:Desirable Triglyceri de: less than 150 mg/dLBorderline High Triglyceride 150-199 mg/dLHigh Triglyceride: 200-499 mg/dLVery High Triglyceride: greater than or equal to 5OO mg/dL Cholesterol 175 <200 mg/dL [facility] Comment:Desirable Cholestero l: less than 200 mg/dLBorderline High Cholesterol: 200-239 mg/dLHigh Cholesterol: greater than 239 mg/dL LDL Cholesterol Calculated 103(H) <100 mg/dL [facility] Comment:Desirable LDL: less than 100 mg/dLNear Optimal/Above Optimal LDL: 110- 129 mg/dLBorderline High LDL: 130-159 mg/dLHigh LDL: 160-189 mg/dLVery High LDL: greater than or equal to 190 mg/dL HDL Cholesterol 47 >40 mg/dL [facility] Comment:Desirable HDL: great er than 40 mg/dL Note: This HDL assay may give artificially low results in patients with liver disease. Blood Venous blood specimen / Unknown 07/22/2024 1:40 PM EDT 07/22/2024 4:00 PM EDT us Zachariah Sharma MD LAB BLOOD ORDERABLES Final Resul t [facility] [address] [place] [phone] * (ABNORMAL) POCT A1C (07/22/2024 10:49 AM EDT) Hemoglobin A1C 6.5(A) 4.0 - 6.0 % Blood 07/22/2024 10:4 9 AM EDT Zachariah Sharma MD POINT OF CARE TEST ENTER/EDIT OR DERABLES Final Result from Last 3 Months or Most Recently Relevant to Health Maintenance Insurance [employer] FULL Care Teams Cotton Bag Sewer Relationship Specialty Start Date End Date Magali Valencia FNP [address] [place] [phone] PCP - General Family Medicine 10/05/24
== END 2024-11-11 14:12 | disposition home or self-care (01) ==
LOC: HO.MAMMO 14:11
PROVIDERS: Visit Provider Nurse Practitioner Family
DX: Z12.31 Encounter for screening mammogram for malignant neoplasm of breast (principal)
CPT/HCPCS: 77063; 77067

== ENCOUNTER → 2024-11-11 14:20 | Outpatient (BNV) | payer MEDICAID, SELFPAY | PROVIDERS: Visit Provider Internal Medicine | DX: Z12.31 Encounter for screening mammogram for malignant neoplasm of breast (principal) | CPT/HCPCS: 77063; 77067 ==

== ENCOUNTER 2024-11-28 11:18 | Outpatient (REF) | payer MEDICAID, OTHER, SELFPAY ==
--- NOTE | ~2024-11-28 | US_ITS ---
EXAMINATION(S): 1. MM DIAGNOSTIC DIGITAL BREAST TOMOSYNTHESIS, LEFT 2. Targeted ultrasound of the left breast CLINICAL INFORMATION: Callback from baseline mammogram for left breast mass. COMPARISON: Mammogram on November 11, 2024. TECHNIQUE: Digital breast tomosynthesis is performed in full-field ML 90 degrees along with computer-aided detection (CAD). Synthesized 2D images are generated from the tomosynthesis. Spot compression tomosynthesis were obtained. FINDINGS: BREAST COMPOSITION: There are scattered areas of fibroglandular density (ACR BI-RADS breast composition Category b). LEFT BREAST: An approximately 0.5 cm mass persists with spot compression, located in the lower slightly inner breast at about 2.5-5.0 cm from the nipple (ML 90 degrees /, spot CC , MLO ). Targeted ultrasound of the left breast was performed at the location of the mammographic finding. The survey shows a simple cyst measuring 0.5 x 0.3 x 0.3 cm at 6 o'clock position 3 cm from the nipple, with multiple additional subcentimeter cysts around. No abnormal vascularity demonstrated with color Doppler evaluation. US/US breast LT limited mamm only IMPRESSION: LEFT BREAST: Cluster for cysts at 6:00 at 3 cm from the nipple, with the largest simple cyst measuring 0.5 cm. Benign, no mammographic evidence of malignancy. Normal interval follow-up is recommended in 12 months. ASSESSMENT: BI-RADS 2 - Benign Findings RECOMMENDATION: 1 year F/U Results were provided to the patient at time of visit by the technologist. This patient's information was entered into a reminder system with a target due date for their next mammogram. Electronically signed by: Contreras Castro MD 11/28/2024 03:41 PM EDT
--- OUTSIDE RECORDS SUMMARY | 2024-11-28 15:20 | XMS_ITS | Clinical Summary ---
Author Organization Health: [employer] Address [address] [place] [address] 7 [place] [address] Care Team Providers Care Editor Continuity And Script Name Role Phone Magali Valencia BROOM STITCHER Primary Care Provider [phone] Allergies No known active allergies Medications Alcohol Swabs (Alcohol Pads) 70 % padsIndications :New onset type 2 diabetes mellitus (CMS/HCC) Use as directed on skin; check 2x/day (new-onset Type 2 DM) 100 each 07/22/2024 Active Blood Glucose Monitoring Suppl (FreeStyle Warnock Lite) w/Device kitIndications: New onset type 2 [...] Description 10/05/2024 2:00 PM EDT Office Visit [address] [address] Magali Valencia FNP Encounter for adult wellness visit (Primary Dx); Encounter for immunization; Dietary counseling; Exercise counseling; Gastroesophageal reflux disease without esophagitis; New onset type 2 diabetes mellitus ([facility]/HCC); Hyperlipidemia, unspecified hyperlipidemia type; Elevated BP without diagnosis of hypertension 10/05/2024 Orders Only [address] [address] Magali Valencia FNP 10/05/2024 Travel 10/04/[address] [address] Magali Valencia FNP Chart Prep 09/27/2024 Patient Outreach [facility] [address] [place], [place] [phone] Magali Valencia FNP Pre-visit Planning (SDOH negative. Tobacco screening negative. ) 09/08/[address] [address] Magali Valencia FNP CHW - New Patient [...] 10/05/2024 2:07 PM EDT Plan of Treatment Upcoming Encounters Date Type Department Care Team (Late st Contact Info) Description 12/29/2024 11:15 AM EDT Office Visit [facility] [address] [place] [address] Erik MagaliCHRIS chahal [address] [place] [address] Health Maintenance Due Date Last Done Comments CT Colonography 1955 Colonoscopy 1955 Colorectal Cancer Screening 1955 FIT DNA/Cologuard 1955 FIT 1955 FOBT 1955 Sigmoidoscopy 1955 Diabetes: Foot Exam 01/31/1966 Eye Exam 01/31/1966 Zoster Vaccines (1 of 2) 01/31/2006 COVID-19 Vaccine (2023-2 5 season) 2024 Influenza Vaccine (#1) 2024 Diabetes: Hemoglobin A1C 01/22/2025 07/22/2024 Diabetes: Urine Protein Screening 07/22/2025 07/22/2024 Lipid Panel 07/22/2025 07/22/2024 SDOH Screening 09/27/2025 09/27/2024 Alcohol/Substance Use Screening 10/05/2025 10/05/2024 Depression Screening 10/05/2025 10/05/2024, 10/05/2024 Tobacco Screening 10/05/2025 10/05/2024 Mammogram 11/11/2026 11/11/2024 RSV Patients and Patients Aged 60 years [...] Procedure Name Priority Date/Time Associated Diagnosis Comments BI MAMMOGRAM SCREENING TOMOSYNTHESIS BILATERAL Routine 11/11/2024 2:20 PM EDT Encounter for adult wellness visit HEPATITIS B SURFACE ANTIBODY, QUALITATIVE Routine 10/05/2024 3:02 PM EDT Encounter for immunization HEPATITIS B SURFACE ANTIGEN, EIA Routine 10/05/2024 3:02 PM EDT Encounter for immunization HEPATITIS C AB W/REFL TO HCV RNA, QN, PCR Routine 10/05/2024 3:02 PM EDT Encounter for immunization HIV 1/2 ANTIGEN/ANTIBODY, FOURTH GENERATION W/RFL Routine 10/05/2024 3:02 PM EDT Encounter for immunization CHLAMYDIA/TRICHOMONAS /NEISSERIA GONORRHOEAE, PCR, URINE Routine 10/05/2024 12:00 AM [...] Recently Relevant to Health Maintenance Results * BI Mammogram Screening Tomosynthesis Bilateral (11/11/2024 2:20 PM EDT) Anatomical Region Laterality Modality Breast Bilateral Mammography 11/11/2024 2:20 PM EDT Narrative 11/15/2024 10:49 AM EDT [facility] [address] [place], [place] [address] Mammography Report Signed Patient: Betzaida Hay MR#: [id number] : 1955 Acct:[id number] Age/Sex: 69 / F ADM Date: 11/11/24 Loc: MAMMO Attending Dr: Magali Valencia BROOM STITCHER Ordering Physician: Magali Valencia Results: 0Incom plete: Needs Additional Imaging Evaluation Date of Service: 11/11/24 Follow Up: Additional Imagi ng Procedure(s): MM tomosynthesis screening BI Accession Number(s): [id number] cc: Magali Valencia BROOM STITCHER EXAMINATION: MM SCREENING DIGITAL BREAST TOMOSYNTHESIS, BILATERAL CLINICAL INFORMATION: Screening. Asymptomatic. COMPARISON: Mammography: Baseline. TECHNIQUE: Digital breast mammography with tomosynthesis is performed in both the craniocaudal and mediolateral oblique views along with computer-aided detection (CAD). FINDINGS: There are scattered areas of fibroglandular density (ACR BI-RADS breast composition Category b). Left: Circumscribed oval mass lower central breast anterior depth. No suspicious calcifications or other abnormal findings. Right: There are no significant masses, abnormal calcifications, or other abnormalities. MM/MM tomosynthesis screening BI IMPRESSION: Additional imaging is recommended ASSESSMENT: BI-RADS BI-RADS 0 - Incomplete: Needs additional Imaging. RECOMMENDATION: 1. Additional views of the left breast starting with ultrasound. 2. Radiology department staff will contact the patient for additional imaging. Additional Imaging required This examination should not preclude the clinical evaluation of a suspicious palpable abnormality. This patient's information was entered into a reminder system with a target due date for their next mammogram. Electronically signed by: Lianne Flores DO 11/15/2024 10:46 AM EDT Dictated By: Lianne Flores DO Signed By: <Electronically signed by Lianne Flores DO in OV> 11/15/24 1046 DD/ 1420 TD/TT: 11/11/24 1448 Business Continuity Global Director: Procedure Note Jono, Image - 11/15/2024 [facility] [address] [place] [address] Mammography Report Signed Patient: Julius HayaMR#: [id number] : 1955cct:[id number] Age/Sex: 69 / FADM Date: 11/11/24 Loc: [facility] Attending Dr: Magali Valencia BROOM STITCHER Ordering Physician: Magali Valencia FNPResults: 0Incom plete: Needs Additional Imaging Evaluation Date of Service: 11/11/24Follow Up: Additional Imagi ng Procedure(s): MM tomosynthesis screening BI Accession Number(s): [id number] cc: Magali Valencia BROOM STITCHER EXAMINATION: MM SCREENING DIGITAL BREAST TOMOSYNTHESIS, BILATERAL CLINICAL INFORMATION: Screening. Asymptomatic. COMPARISON: Mammography: Baseline. TECHNIQUE: Digital breast mammography with tomosynthesis is performed in both the craniocaudal and mediolateral oblique views along with computer-aided detection (CAD). FINDINGS: There are scattered areas of fibroglandular density (ACR BI-RADS breast composition Category b). Left: Circumscribed oval mass lower central breast anterior depth. No suspicious calcifications or other abnormal findings. Right: There are no significant masses, abnormal calcifications, or other abnormalities. MM/MM tomosynthesis screening BI IMPRESSION: Additional imaging is recommended ASSESSMENT: BI-RADS BI-RADS 0 - Incomplete: Needs additional Imaging. RECOMMENDATION: 1. Additional views of the left breast starting with ultrasound. 2. Radiology department staff will contact the patient for additional imaging. Additional Imaging required This examination should not preclude the clinical evaluation of a suspicious palpable abnormality. This patient's information was entered into a reminder system with a target due date for their next mammogram. Electronically signed by: Lianne Flores DO 11/15/2024 10:46 AM EDT Dictated By: Lianne Flores DO Signed By: <Electronically signed by Lianne Flores DO in OV> 11/15/24 1046 DD/ 1420 TD/TT: 11/11/24 1448 Business Continuity Global Director: Magalifela Haydeno [facility] IM[facility] BI PROCEDURES Edited Resul t - Final * Hepatitis C Antibody with Reflex to HCV, RNA, Quantitative, Real-Time PCR (10/05/2024 3:02 PM EDT) Hepatitis C Antibody Nonreactive Nonreactive [facility] Comment:Antibodies to HCV no t detected; does not exclude early acuteHCV infection. Blood Venous blood specimen / Unknown 10/05/2024 3:02 PM EDT 10/05/2024 4:28 PM EDT [facility] BLOOD ORDERABLES Final Res ult Performing Organization Address City/[facility]/ZIP Co de Phone Number [facility] [address] [place] [phone] * Hepatitis B surface antigen, EIA (10/05/2024 3:02 PM EDT) Hepatitis B Surface Ag Negative Negative [facility] Blood Venous blood specimen / Unknown 10/05/2024 3:02 PM EDT 10/05/2024 4:28 PM EDT [facility] BLOOD [facility]AB[facility] Final Res ult Performing Organization Address City/[facility]/ZIP Co de Phone Number [facility] [address] [place] [address] [phone] * HIV-1/2 Antigen and Antibodies, Fourth Generation, with Reflexes (10/05/2024 3:02 PM EDT) HIV AB/AG Nonreactive Nonreactive [facility] Comment:HIV-1 p24 Ag and/or HIV-1/HIV-2 Ab not detected.A test result that is nonreactive does not exclude thepossibility of exposure to or infection with HIV-1 and/orHIV-2. Nonreactive results in this assay for individualswith prior exposure to HIV-1 and/or HIV-2 may be due toantigen and antibody levels that are below the limit ofdetection of this assay.The RiskalyzeniAdform HIV Ag/Ab Combo assay result andsupplemental assay results should be interpreted inconjunction with the patient's clinical presentation,history and other laboratory results. If the results areinconsistent with clinical evidence, additional testing issuggested to confirm the result. Blood Venous blood specimen / Unknown 10/05/2024 3:02 PM EDT 10/05/2024 4:28 PM EDT [facility] BLOOD ORDERABLES Final Res ult Performing Organization Address [facility]/ZIP Co de Phone Number [facility] [address] [place] [phone] * Hepatitis B Surface Antibody, Qualitative (10/05/2024 3:02 PM EDT) [facility] ~Hepatitis B Surface Antibody REACTIVE Nonreactive [facility] Comment:REACTIVE: > 11.99 mI U/mL Blood Venous blood specimen / Unknown 10/05/2024 3:02 PM EDT 10/05/2024 4:28 PM EDT [facility] BLOOD ORDERABLES Final Res ult Performing Organization Address City/[facility]/ZIP Co de Phone Number [facility] [address] [place] [address] [phone] * Chlamydia/Trichomonas/Neisseria gonorrhoeae, PCR, Urine (10/05/2024 12:00 AM EDT) [facility] CT PCR, Urine NOT DETECTED Not Detect. [facility] Comment:A not detected test result [...] NG PCR, Urine NOT DETECTED Not Detect. [facility] Comment:A not detected test result [...] medical, social or psychologicalconsequences. 10/05/2024 10/05/2024 us Magali Valencia [facility] URINE ORDERABLES Final Res ult [facility] [address] [place] [phone] * Albumin, Random Urine W/Creatinine (07/22/2024 1:40 PM EDT) Creatinine, Urine 65.19 mg/dL [facility] Microalbumin Urine 14.0 mg/L [facility] Microalbum Creatinine Ratio Ur 21.4 <30 ug/mg cr [facility] Comment:Albumin/Creatinine R atio Reference Ranges: Normal: < 30 ug/mg creatinine Microalbuminuria: 30 - 300 ug/mg creatinineClinical Albuminuria: > 300 ug/mg creatinine Urine 07/22/2024 1:40 PM EDT 07/22/2024 4:01 PM EDT Zachariah Sharma MD LAB URINE ORDERABLES Final Resul t Performing Organization Address [facility] de Phone Number [facility] [address] [place] [address] [phone] * (ABNORMAL) Lipid Panel, Standard (07/22/2024 1:40 PM EDT) Triglycerides 126 <150 mg/dL [facility] Comment:Desirable Triglyceri de: less than 150 mg/dLBorderline High Triglyceride 150-199 mg/dLHigh Triglyceride: 200-499 mg/dLVery High Triglyceride: greater than or equal to 5OO mg/dL Cholesterol 175 <200 mg/dL [facility] Comment:Desirable Cholestero l: less than 200 mg/dLBorderline High Cholesterol: 200-239 mg/dLHigh Cholesterol: greater than 239 mg/dL LDL Cholesterol Calculated 103(H) <100 mg/dL [facility] Comment:Desirable LDL: less than 100 mg/dLNear Optimal/Above Optimal LDL: 110- 129 mg/dLBorderline High LDL: 130-159 mg/dLHigh LDL: 160-189 mg/dLVery High LDL: greater than or equal to 190 mg/dL HDL Cholesterol 47 >40 mg/dL [facility] Comment:Desirable HDL: great er than 40 mg/dL Note: This HDL assay may give artificially low results in patients with liver disease. Blood Venous blood specimen / Unknown 07/22/2024 1:40 PM EDT 07/22/2024 4:00 PM EDT Zachariah Sharma MD LAB BLOOD ORDERABLES Final Resul t Performing Organization Address [facility] Co de Phone Number [facility] [address] [place] [phone] * (ABNORMAL) POCT A1C (07/22/2024 10:49 AM EDT) Hemoglobin A1C 6.5(A) 4.0 - 6.0 % Blood 07/22/2024 10:4 9 AM EDT Zachariah Sharma MD POINT OF CARE TEST ENTER/EDIT OR DERABLES Final Result from Last 3 Months or Most Recently Relevant to Health Maintenance [facility] Care Teams Editor Continuity And Script Relationship Specialty Start Date End Date Magali Valencia FNP [address] [place] [address] PCP - General Family Medicine 10/05/24
== END 2024-11-28 11:19 | disposition home or self-care (01) ==
LOC: HO.MAMMO 11:18
PROVIDERS: PCP Nurse Practitioner Family; Visit Provider Nurse Practitioner Family
DX: N63.25 Unspecified lump in the left breast, overlapping quadrants (principal)
CPT/HCPCS: 76642; 77061; 77065

== ENCOUNTER → 2024-11-28 11:30 | Outpatient (BNV) | payer MEDICAID, SELFPAY | PROVIDERS: PCP Nurse Practitioner Family; Visit Provider Radiology Body Imaging | DX: N60.02 Solitary cyst of left breast (principal) | CPT/HCPCS: 76642; 77061; 77065 ==